=== PATIENT | female | born 1945 ===

== ENCOUNTER 2018-11-25 10:32 | Outpatient (CLI) | payer OTHER | END 2018-11-25 10:45 | disposition home or self-care (01) | LOC: LAB 10:32 | DX: D68.8 Other specified coagulation defects (principal); K06.8 Other specified disorders of gingiva and edentulous alveolar ridge; D62 Acute posthemorrhagic anemia ==

== ENCOUNTER 2019-01-05 08:51 | Outpatient (CLI) | payer OTHER | END 2019-01-05 08:56 | disposition home or self-care (01) | LOC: LAB 08:51 | DX: D68.0 Von Willebrand disease (principal) ==

== ENCOUNTER 2019-01-23 15:12 | Outpatient (CLI) | payer OTHER | END 2019-01-23 15:18 | disposition home or self-care (01) | LOC: RAD 15:12 | DX: R05 Cough (principal) ==

== ENCOUNTER 2021-04-10 14:26 | Outpatient (CLI) | payer OTHER | END 2021-04-10 14:27 | disposition home or self-care (01) | LOC: LAB 14:26 | PROVIDERS: ATTEND Internal Medicine Hematology & Oncology | DX: D68.0 Von Willebrand disease (principal) ==